=== PATIENT | male | born 1950 ===

== ENCOUNTER 2017-01-17 19:45 | Emergency (ER) | payer MEDICARE, OTHER ==
[2017-01-17] MEDS ORDERED: Aluminum Hydroxide/Magnesium Hydroxide Susp (30 mL) PO STA (21:33)
[2017-01-17] MEDS ORDERED: Lidocaine 2% Viscous 100 ml PO STA (21:33)
[2017-01-17] MEDS ORDERED: Sodium Chloride 0.9% 1,000 ML IV ONE (21:33)
[2017-01-17] MEDS ORDERED: Belladonna-Phenobarbital PO STA (21:33)
--- NOTE | 2017-01-17 21:39 | C.PDOC ---
History Of Present Illness Patient is a 66 year old male with a PMHx of gastritis who presents to the ER with a complaint of epigastric pain similar to past gastritis episodes. Patient is noncompliant with medications, note mild nausea as well. Denies fever, vomiting, chest pain, or SOB. Chief Complaint (Nursing): Abdominal Pain History Per: Patient History/Exam Limitations: no limitations Onset/Duration Of Symptoms: Hrs Current Symptoms Are (Timing): Still Present Context: Other (Not known) Location Of Pain/Discomfort: Epigastric Radiation Of Pain To:: None Associated Symptoms: Nausea (Mild). denies: Fever, Vomiting Exacerbating Factors: None Alleviating Factors: None Recent travel outside of the [place]: No Past Medical History Reviewed: Historical Data, Nursing Documentation, Vital Signs Vital Signs: Last Vital Signs Temp 97.7 F 01/17/17 23:37 Pulse 65 01/17/17 23:37 Resp 16 01/17/17 23:37 BP 112/72 01/17/17 23:37 Pulse Ox 98 01/24/17 20:26 - Medical History PMH: Gastritis, Hypercholesterolemia Surgical History: Appendectomy, Back Surgery Family History: States: Unknown Family Hx - Social History Hx Alcohol Use: No Hx Substance Use: No - Immunization History Hx Influenza Vaccination: Yes Review Of Systems Constitutional: Negative for: Fever Cardiovascular: Negative for: Chest Pain Respiratory: Negative for: Shortness of Breath Gastrointestinal: Positive for: Nausea (Mild), Abdominal Pain (Epigastric). Negative for: Vomiting Physical Exam - Physical Exam Appears: Well, Non-toxic Skin: Normal Color, Warm, Dry Head: Atraumatic, Normacephalic Oral Mucosa: Moist Chest: Symmetrical, No Tenderness Cardiovascular: Rhythm Regular, No Murmur Respiratory: Normal Breath Sounds, No Rales, No Rhonchi, No Wheezing Gastrointestinal/Abdominal: Soft, Tenderness (Mild, epigastric) Back: No CVA Tenderness Neurological/Psych: Oriented x3, Normal Speech, Normal Cognition ED Course And Treatment - Laboratory Results Result Diagrams: 01/17/17 22:36 01/17/17 22:36 O2 Sat by Pulse Oximetry: 98 (Room air) Pulse Ox Interpretation: Normal Progress Note: Maalox PO, PO, pepcid IVP, lidocaine 2% PO, zofran IVP, and IV fluids administered. On reevaluation, patient feels much better after medication. Patient advised to follow up with PMD, Rx given, and patient will be discharged home. Medical Decision Making Medical Decision Making: Plan: * Maalox, , pepcid, zofran, and IVFs * Labs * Reassess Prior Visits: Notes and results from previous visits were reviewed Progress Notes: Disposition - [facility] - Disposition: HOME/ ROUTINE Disposition Time: 23:05 Condition: IMPROVED Additional Instructions: Thank you for letting us take care of you today. Your provider was Dr. Crump. You were treated for gastritis. The emergency medical care you received today was directed at your acute symptoms. If you were prescribed any medication, please fill it and take as directed. It may take several days for your symptoms to resolve. Return to the Emergency Department if your symptoms worsen, do not improve, or if you have any other problems. Please contact your doctor or call one of the physicians/clinics you have been referred to that are listed on the Patient Visit Information form that is included in your discharge packet. Bring any paperwork you were given at discharge with you along with any medications you are taking to your follow up visit. Our treatment cannot replace ongoing medical care by a primary care provider (PCP) outside of the emergency department. Thank you for allowing the [facility] [employer] team to be part of your care today. Follow up with your doctor in 2-3 days for re-evaluation. Prescriptions: Ranitidine HCl [Zantac] 150 mg PO BID #20 tablet Instructions: Gastritis (ED), Diet for Ulcers and Gastritis (ED) - Clinical Impression Clinical Impression: Gastritis - Scribe Statement The provider has reviewed the documentation as recorded by the Eloibmonik Fountain All medical record entries made by the Eloibe were at my direction and personally dictated by me. I have reviewed the chart and agree that the record accurately reflects my personal performance of the history, physical exam, medical decision making, and the department course for this patient. I have also personally directed, reviewed, and agree with the discharge instructions and disposition.
[2017-01-17] MEDS ORDERED: Aluminum Hydroxide/Magnesium Hydroxide Susp (30 mL) ONE (21:54)
[2017-01-17] MEDS ORDERED: Belladonna-Phenobarbital ONE (21:54)
[2017-01-17 22:45] LABS: BASO % 0.5 % (0.0-2.0); EOS # 0.1 K/uL (0.0-0.7); EOS % 1.5 % (0.0-4.0); HEMATOCRIT 38.1 % (35.0-51.0); LYMPH % 34.5 % (20.0-40.0); MEAN CELL VOLUME 95.7 fL (80.0-94.0); MEAN CORPUSCULAR HEMOGLOBIN 32.9 pg (27.0-31.0); MEAN CORPUSCULAR HGB CONC 34.4 g/dL (33.0-37.0); MONO # 0.7 K/uL (0.0-0.8); MONO % 12.6 % (0.0-10.0); NRBC % 0.1 % (0.0-2.0); RED CELL DISTRIBUTION WIDTH 13.3 % (11.5-14.5); WHITE BLOOD COUNT 5.7 K/uL (4.8-10.8)
[2017-01-17 22:52] LABS: CHLORIDE 96 mmol/L (98-107)
[2017-01-17 22:53] LABS: POTASSIUM 3.9 mmol/L (3.6-5.2); SODIUM 132 mmol/L (132-148)
[2017-01-17 22:55] LABS: ALB/GLOB RATIO 1.4 (1.0-2.1); ALKALINE PHOSPHATASE 83 U/L (38-126); AST/SGOT 41 U/L (17-59); BILIRUBIN,TOTAL 0.6 mg/dL (0.2-1.3); BLOOD UREA NITROGEN 14 mg/dL (9-20); CARBON DIOXIDE 29 mmol/L (22-30); GFR AFRICAN-AMERICAN > 60; GLUCOSE,RANDOM 91 mg/dL (75-110); TOTAL PROTEIN 7.3 g/dL (6.3-8.3)
[2017-01-17 22:56] LABS: ALT/SGPT 61 U/L (21-72); CALCIUM 8.8 mg/dl (8.6-10.4)
[2017-01-17 23:38] VITALS: BP 112/72; PULSE 65; RESP 16; TEMP 97.7
[2017-01-18 00:38] VITALS: O2SAT 98
== END 2017-01-17 23:39 | disposition home or self-care (01) ==
LOC: C.ER 19:45
DX: K29.70 Gastritis, unspecified, without bleeding (principal)
CPT/HCPCS: 80053; 83690; 85025; 96361; 96374; 96375; 99284; J2405; J7040

== ENCOUNTER 2017-02-16 15:53 | Emergency (ER) | payer MEDICARE, OTHER ==
[2017-02-16 16:07] VITALS: BP 138/73; PULSE 96; RESP 20; TEMP 98; O2SAT 96
--- NOTE | 2017-02-16 16:33 | C.PDOC ---
History Of Present Illness 66 year old male presents to the ED with complaints of nasal congestion and abdominal bloating. Patient has been seen multiple times at [facility] for similar symptoms and states last saw PMD two days ago and was prescribed nasal spray but did not bring it with him to the ED. He also [place] in the park for the majority of the day. Patient denies any fever, headache, or vomiting. Time Seen by Provider: 02/16/17 16:23 Chief Complaint (Nursing): Medical Clearance History Per: Patient History/Exam Limitations: no limitations Onset/Duration Of Symptoms: Persistent Current Symptoms Are (Timing): Still Present Reports Recently: Seen In ED Recent travel outside of the [place]: No Past Medical History Reviewed: Historical Data, Nursing Documentation, Vital Signs Vital Signs: Last Vital Signs Temp 98 F 02/16/17 16:01 Pulse 96 H 02/16/17 16:01 Resp 20 02/16/17 16:01 BP 138/73 02/16/17 16:01 Pulse Ox 96 02/16/17 18:10 - Medical History PMH: Back Problems (herniated discs), Gastritis, Hypercholesterolemia Surgical History: Appendectomy, Back Surgery Family History: States: Unknown Family Hx - Social History Hx Alcohol Use: No Hx Substance Use: No - Immunization History Hx Influenza Vaccination: Yes Review Of Systems Constitutional: Negative for: Fever, Chills, Sweats ENT: Positive for: Nose Congestion Cardiovascular: Negative for: Chest Pain, Palpitations Respiratory: Negative for: Cough, Shortness of Breath Gastrointestinal: Positive for: Other (abdominal bloating ). Negative for: Nausea, Vomiting, Diarrhea Physical Exam - Physical Exam Appears: Non-toxic, No Acute Distress, Other (patient is mildly obese ) Skin: Warm, Dry Head: Atraumatic Ear(s): Bilateral: Normal Nose: No Discharge, Other (Nasal congestion and erythema ) Oral Mucosa: Moist Neck: Supple Gastrointestinal/Abdominal: Soft, No Tenderness, No Distention, No Guarding, No Rebound ED Course And Treatment O2 Sat by Pulse Oximetry: 96 Medical Decision Making Medical Decision Making: nasal congestion, seasonal allergies prescribed an unknown nasal spray 2 days ago and using BID without desired effect Rx Jennifer-D and Flonase and pt may discard whichever is repetitive. abd bloating taking Omeprazole "PRN" in AM and taking Motrin regularly for back pain Instructed to take EVERY QHS requested and given "same treatment I got last time for my stomach" chart reviewed from 01/22: Maalox/Pepcid given Disposition Doctor Will See Patient In The: Office Counseled Patient/Family Regarding: Studies Performed, Diagnosis - Disposition Referrals: Jason Howard MD [Medical Doctor] - Disposition: HOME/ ROUTINE Disposition Time: 16:38 Condition: GOOD Additional Instructions: Asroj Omeprazole TODAS LAS NOCHES Saroj Maalox Plus 30 cc (ana cucharada) 5 veces al ernestine idania necessario Congestion Nasal: FLonase 2 sprays cada lado 2 veces al ernestine Jennifer-D, (allergias y congestion) saroj 2 veces al ernestine Sigue con Dr. Howard idania necessario. Prescriptions: Aluminum Hydroxide/Magnesium [Maalox Plus 30 ml] 30 ml PO 5XD PRN #240 ml PRN Reason: GERD Fexofenadine/Pseudoephedrine [Jennifer-D 12 Hour Tablet] 1 each PO Q12H PRN #20 tab.er.12h PRN Reason: seasonal allergies Fluticasone Nasal [Flonase] 1 actuation NS DAILY #1 spr Instructions: Allergic Rhinitis (ED), Gas and Bloating (ED) Print Language: TRISTANIAN - Clinical Impression Clinical Impression: Nasal sinus congestion, Abdominal bloating - Scribe Statement The provider has reviewed the documentation as recorded by the Scribmonik Reilly All medical record entries made by the Scribe were at my direction and personally dictated by me. I have reviewed the chart and agree that the record accurately reflects my personal performance of the history, physical exam, medical decision making, and the department course for this patient. I have also personally directed, reviewed, and agree with the discharge instructions and disposition.
[2017-02-16] MEDS ORDERED: Alum-Mag Hydrox-Simethicone Susp (30 mL) PO STA (16:36)
[2017-02-16] MEDS ORDERED: Alum-Mag Hydrox-Simethicone Susp (30 mL) ONE (16:44)
== END 2017-02-16 16:45 | disposition home or self-care (01) ==
LOC: C.ER 15:53
DX: R09.81 Nasal congestion (principal); R14.0 Abdominal distension (gaseous)